=== PATIENT | female | born 1955 | race Hispanic/Latino ===

== ENCOUNTER 2016-07-12 05:33 | Emergency (ER) | payer OTHER ==
[2016-07-12 05:49] VITALS: BP 135/65; PULSE 61; RESP 16; TEMP 97.9; O2SAT 97
[2016-07-12] MEDS ORDERED: Clindamycin 300 MG in Sodium Chloride 0.9% 50 ML IVPB STA (06:13)
--- NOTE | 2016-07-12 06:32 | ED PDOC ---
Lower Extremity Pain/Injury Time Seen by Provider: 07/12/16 05:51 Chief Complaint (Nursing): Bite Chief Complaint (Provider): Bite History Per: Patient History/Exam Limitations: no limitations Onset/Duration Of Symptoms: Days (Since ) Current Symptoms Are (Timing): Still Present Severity: Mild Additional Complaint(s): 61 y/o female patient presenting to the ER with swelling and redness to her right lower extremity. Patient states that on she was playing with her cat and the cat nipped her on her leg and made a small bite. The patient began having some swelling and redness so she went to urgent care where she was prescribed Doxycycline because she can not tolerate augmentin when tried in the past. PT states that after taking 3 does of the medications, the swelling and redness has worsened and now it causes her pain when trying to walk, she states she has no fever or chills. Past Medical History Reviewed: Historical Data, Nursing Documentation, Vital Signs, Unable To Obtain Vital Signs: Last Vital Signs Temp 97.9 F 07/12/16 05:44 Pulse 61 07/12/16 05:44 Resp 16 07/12/16 05:44 BP 135/65 07/12/16 05:44 Pulse Ox 97 07/12/16 05:44 - Medical History PMH: No Chronic Diseases - Surgical History Surgical History: No Surg Hx - Family History Family History: States: Unknown Family Hx - Allergies Allergies/Adverse Reactions: Allergies Allergy/AdvReac Type Severity Reaction Status Date / Time amoxicillin [From Augmentin] Allergy RASH Verified 07/12/16 06:02 clavulanic acid Allergy RASH Verified 07/12/16 06:02 [From Augmentin] quinine Allergy RASH Verified 07/12/16 06:02 Sulfa (Sulfonamide Allergy RASH Verified 07/12/16 06:02 Antibiotics) Review of Systems ROS Statement: Except As Marked, All Systems Reviewed And Found Negative Constitutional: Negative for: Fever, Chills Cardiovascular: Negative for: Chest Pain, Palpitations Respiratory: Negative for: Shortness of Breath, Wheezing Gastrointestinal: Negative for: Nausea, Vomiting, Diarrhea Musculoskeletal: Positive for: Leg Pain Neurological: Negative for: Confusion, Dizziness Physical Exam - Reviewed Nursing Documentation Reviewed: Yes Vital Signs Reviewed: Yes - Physical Exam Appears: Positive for: Non-toxic, No Acute Distress Head Exam: Positive for: ATRAUMATIC, NORMAL INSPECTION, NORMOCEPHALIC Skin: Positive for: Normal Color, Warm Neck: Positive for: Normal, Painless ROM, Supple Cardiovascular/Chest: Positive for: Regular Rate, Rhythm. Negative for: Murmur Respiratory: Positive for: Normal Breath Sounds. Negative for: Respiratory Distress Extremity: Positive for: Swelling ((+)swelling, redness, [id number] surrounding erythema ) Neurologic/Psych: Positive for: Alert, Oriented. Negative for: Motor/Sensory Deficits - Laboratory Results Result Diagrams: 07/12/16 06:35 - ECG O2 Sat by Pulse Oximetry: 97 (RA) Pulse Ox Interpretation: Normal Medical Decision Making Medical Decision Making: Time: 604 Initial impression: Cat Bite with Cellulitis Initial plan: --VENOUS BLOOD GAS --CMP --CBC --ESR --CLINDAMYCIN 300MG --KETOROLAC 15MG --BLOOD CULTURE --URINE CULTURE --TIBIA FIBULA RIGHT --URINALYSIS 7AM: will sign out to Dr. Tamez pending rest of workup. Scribe Attestation: Documented by Altagracia Trotter, acting as a scribe for Yaw Chu MD MD Scribe Attestation: All medical record entries made by the Scribe were at my direction and personally dictated by me. I have reviewed the chart and agree that the record accurately reflects my personal performance of the history, physical exam, medical decision making, and the department course for this patient. I have also personally directed, reviewed, and agree with the discharge instructions and disposition. Disposition - Clinical Impression Clinical Impression: Cat bite - Patient ED Disposition Is Patient to be Admitted: No - Disposition Disposition: Transfer of Care Disposition Time: 07:00 Condition: STABLE Patient Signed Over To: Jhonny Tamez Jr. Handoff Comments: pending workup
[2016-07-12] MEDS ORDERED: Clindamycin 300 MG in Sodium Chloride 0.9% 100 ML IVPB STA (06:37)
[2016-07-12 06:39] LABS: VENOUS BLOOD GAS BASE EXCESS -4.7 mmol/L (0.0-2.0); VENOUS BLOOD GAS PCO2 80 mmHg (40-60); VENOUS BLOOD PH 7.12 (7.32-7.43)
[2016-07-12 06:42] LABS: BASO # 0.1 K/uL (0.0-0.2); BASO % 0.8 % (0.0-2.0); EOS # 0.4 K/uL (0.0-0.7); EOS % 5.9 % (0.0-4.0); HEMATOCRIT 34.9 % (34.0-47.0); LYMPH # 2.4 K/uL (1.0-4.3); LYMPH % 36.1 % (20.0-40.0); MEAN CELL VOLUME 99.6 fl (81.0-99.0); MEAN CORPUSCULAR HEMOGLOBIN 32.2 pg (27.0-31.0); MEAN CORPUSCULAR HGB CONC 32.3 g/dL (33.0-37.0); MEAN PLATELET VOLUME 7.1 fl (7.2-11.7); MONO # 0.6 K/uL (0.0-0.8); MONO % 9.6 % (0.0-10.0); NEUT # 3.2 K/uL (1.8-7.0); NEUT % 47.6 % (50.0-75.0); RED CELL DISTRIBUTION WIDTH 13.7 % (11.5-14.5); WHITE BLOOD COUNT 6.7 K/uL (4.8-10.8)
[2016-07-12 06:54] LABS: ALB/GLOB RATIO 1.4 (1.0-2.1); ALKALINE PHOSPHATASE 65 U/L (38-126); ALT/SGPT 60 U/L (9-52); AST/SGOT 36 U/L (14-36); BILIRUBIN,TOTAL 0.5 mg/dl (0.2-1.3); BLOOD UREA NITROGEN 15 mg/dl (7-17); CALCIUM 9.7 mg/dL (8.4-10.2); CARBON DIOXIDE 28 mmol/L (22-30); CHLORIDE 106 mmol/L (98-107); GFR AFRICAN-AMERICAN > 60; GLUCOSE,RANDOM 88 mg/dL (65-105); POTASSIUM 4.3 MMOL/L (3.6-5.0); SODIUM 141 mmol/l (132-148)
--- NOTE | 2016-07-12 07:30 | ED PDOC ---
- Laboratory Results Result Diagrams: 07/12/16 06:35 07/12/16 06:35 - ECG O2 Sat by Pulse Oximetry: 97 (RA) Pulse Ox Interpretation: Normal Medical Decision Making Medical Decision Making: Receiving Sign Out: Patient signed out to me by Dr. Chu pending Right Tibia Fibula XR results and final disposition. Scribe Attestation: Documented by Kelsie Spencer acting as a scribe for Jhonny Tamez DO. Provider Attestation: All medical record entries made by the Scribe were at my direction and personally dictated by me. I have reviewed the chart and agree that the record accurately reflects my personal performance of the history, physical exam, medical decision making, and the department course for this patient. I have also personally directed, reviewed, and agree with the discharge instructions and disposition. Disposition - Clinical Impression Clinical Impression: Cat bite - POA Present On Arrival: None - Disposition Disposition: Routine/Home Disposition Time: 07:54 Condition: STABLE Additional Instructions: Ms. Madsen, thank you for letting us take care of you today. Return to the ER if your symptoms worsen, if redness spreads further, or if any problems. Continue taking doxycycline. We are also adding the medication clindamycin. Please take this as prescribed. Follow up with your primary care physician in 2-3 days for a re-evaluation. Prescriptions: Clindamycin [Cleocin] 1 tab PO QID #40 cap Instructions: Animal Bite (ED) Forms: [employer] (Barbadian), [facility] ED School/Work Excuse Print Language: AZERI
[2016-07-12 09:12] LABS: RBC URINE 1 /hpf (0-3); URINE BILIRUBIN NEGATIVE (NEGATIVE); URINE BLOOD NEGATIVE (NEGATIVE); URINE COLOR YELLOW (YELLOW); URINE GLUCOSE (UA) NEG (Normal); URINE KETONE TRACE mg/dL (NEGATIVE); URINE LEUKOCYTE ESTERASE TRACE Leu/uL (Negative); URINE PROTEIN NEGATIVE (NEGATIVE); URINE UROBILINOGEN 0.2-1.0 mg/dL (0.2-1.0); WBC URINE < 1 /hpf (0-5)
--- NOTE | 2016-07-12 09:25 | RAD ---
Right tibia fibula History: Cat bite 3 days ago, now with swelling. Findings: No fracture. No evidence of soft tissue air. Mild degenerative changes involving the joints. Impression: No evidence of underlying fracture or soft tissue air. Repeat evaluation should be obtained if symptoms persist.
== END 2016-07-12 08:50 | disposition home or self-care (01) ==
LOC: H.ER 05:33
DX: T14.8 Other injury of unspecified body region (principal); W55.01XA Bitten by cat, initial encounter; Y92.89 Other specified places as the place of occurrence of the external cause; L03.115 Cellulitis of right lower limb

== ENCOUNTER 2017-05-29 17:16 | Emergency (ER) | payer OTHER ==
[2017-05-29 17:54] VITALS: BP 121/78; PULSE 67; RESP 18; TEMP 97.9; O2SAT 99
--- NOTE | 2017-05-29 18:42 | ED PDOC ---
Upper Extremity Pain/Injury Time Seen by Provider: 05/29/17 17:57 Chief Complaint (Nursing): Upper Extremity Problem/Injury Chief Complaint (Provider): Upper Extremity Problem/Injury History Per: Patient History/Exam Limitations: no limitations Onset/Duration Of Symptoms: Sudden Onset (x1 hour [employer]) Current Symptoms Are (Timing): Still Present Additional Complaint(s): 62 year old female with medical history of hyperlipidemia and RA, presents to the emergency department for an evaluation of a right elbow injury status post tripping on an uneven curve of sidewalk approximately 1 hour prior to arrival. Patient reports taking Tylenol and Motrin upon onset. She denies any numbness, tingling or other bodily injuries. PMD: Samuel Davenport MD Past Medical History Reviewed: Historical Data, Nursing Documentation, Vital Signs Vital Signs: Last Vital Signs Temp 97.9 F 05/29/17 17:51 Pulse 67 05/29/17 17:51 Resp 18 05/29/17 17:51 BP 121/78 05/29/17 17:51 Pulse Ox 99 05/29/17 17:51 - Medical History PMH: Hyperlipidemia, Rheumatoid Arthritis - Surgical History Surgical History: - Family History Family History: States: Unknown Family Hx - Social History Current smoker - smoking cessation education provided: No Alcohol: Social Drugs: Denies - Home Medications Home Medications: Ambulatory Orders Medication Instructions Recorded Clindamycin [Cleocin] 1 tab PO QID #40 cap 07/12/16 Ondansetron ODT [Zofran ODT] 4 mg PO TID #20 odt 05/29/17 oxyCODONE/Acetaminophen [Percocet 1 ea PO Q8 PRN #14 tab 05/29/17 5/325 mg Tab] - Allergies Allergies/Adverse Reactions: Allergies Allergy/AdvReac Type Severity Reaction Status Date / Time amoxicillin [From Augmentin] Allergy RASH Verified 05/29/17 17:51 clavulanic acid Allergy RASH Verified 05/29/17 17:51 [From Augmentin] quinine Allergy RASH Verified 05/29/17 17:51 Sulfa (Sulfonamide Allergy RASH Verified 05/29/17 17:51 Antibiotics) Review of Systems ROS Statement: Except As Marked, All Systems Reviewed And Found Negative Musculoskeletal: Positive for: Arm Pain (right elbow). Negative for: Other ( other bodily injuries) Neurological: Negative for: Numbness (or tingling) Physical Exam - Reviewed Nursing Documentation Reviewed: Yes Vital Signs Reviewed: Yes - Physical Exam Appears: Positive for: Non-toxic, Uncomfortable Skin: Positive for: Normal Color. Negative for: Rash Pulses-Radial (L): 2+ Pulses-Radial (R): 2+ Extremity: Positive for: Tenderness (right elbow moderately), Capillary Refill ( <2 seconds to right arm), Swelling (right elbow moderately). Negative for: Deformity (right elbow), Other (edema or tenderness to right shoulder, wrist and hand) Neurologic/Psych: Positive for: Alert (x3), Oriented. Negative for: Motor/ Sensory Deficits - ECG O2 Sat by Pulse Oximetry: 99 (RA) Pulse Ox Interpretation: Normal Medical Decision Making Medical Decision Making: Initial Impression: Right elbow injury Initial Plan: * Xray elbow (right) * Tylenol 650mg PO ordered at 1808 (pt. refused). Time: 1809 --Xray elbow (right): interpreted by provider. Displaced olecranon fracture noted without dislocation. --Provider offered pain medication to patient, however, she refused drug treatment. Time: 1856 --Discussed case with Dr. Nunez who recommended application of a post elbow splint at 10 degrees of flexion. He also requested CT elbow to be performed and asked not to be contacted with results, as he will follow up with patient in office on 06/01/17. --Plan was relayed to patient. She is now requesting pain medication for relief. --Zofran 4mg, Percocet 5/325mg and CT of the upper extremities without contrast ordered. --Pt. then changed her mind and preferred not to take any medications but states she will take prescription. Time: 2027 --CT UE FINDINGS: BONES/JOINTS: Acute fracture of the proximal ulna, involving the olecranon process. The fracture is significantly comminuted and displaced. There is 1 cm or greater superior and posterior displacement of a large 2 cm olecranon process fracture fragment. The fracture involves the articular surface at more than one location. Elbow joint effusion is seen. No additional acute fractures seen. Visualized portions of the radius and distal humerus appear intact. SOFT TISSUES: Findings suspicious for a 5 x 2 x 4 cm hematoma in the posterior elbow soft tissues. There is also marked posterior soft tissue swelling and. Triceps tendon is seen, and appears grossly intact by CT, however, note that the extremity soft tissues, such as the tendons and ligaments, are suboptimally evaluated by CT compared with MRI. IMPRESSION: - Comminuted and displaced intra-articular fracture of the olecranon process of the ulna. Please see above for a full description. - Findings suspicious for large 5 x 4 cm hematoma in the posterior elbow soft tissues. - Elbow joint effusion. Pt. informed of plan and is to f/u with Dr. Anson Philippe on Thursday. Scribe Attestation: Documented by María Morgan, acting as a scribe for Angel Krueger PA-C. Provider Scribe Attestation: All medical record entries made by the Scribe were at my direction and personally dictated by me. I have reviewed the chart and agree that the record accurately reflects my personal performance of the history, physical exam, medical decision making, and the department course for this patient. I have also personally directed, reviewed, and agree with the discharge instructions and disposition. Disposition - Clinical Impression Clinical Impression: Elbow fracture - Patient ED Disposition Is Patient to be Admitted: No - Disposition Referrals: Pineda Villagomez MD [Staff Provider] - [facility] [Outside] Disposition: Routine/Home Disposition Time: 21:15 Condition: IMPROVED Additional Instructions: Follow up with Dr. Anson Philippe on Thursday for further evaluation. Return to ED immediately if symptoms worsen. Prescriptions: Ondansetron ODT [Zofran ODT] 4 mg PO TID #20 odt oxyCODONE/Acetaminophen [Percocet 5/325 mg Tab] 1 ea PO Q8 PRN #14 tab PRN Reason: Pain Instructions: Elbow Fracture (DC) Forms: [email or web address] (Armenian) Print Language: MALAY
[2017-05-29] MEDS: Oxycodone/Acetaminophen 5/325 mg Tab PO STA ×2 (19:03→19:06)
--- NOTE | 2017-05-29 20:29 | CT ---
EXAM: CT Right Upper Extremity Without Intravenous Contrast, Elbow EXAM DATE/TIME: 05/29/2017 7:01 PM CLINICAL HISTORY: 62 years old, female; Injury or trauma; Fall; Initial encounter; Fracture, traumatic injury; Closed fracture; Elbow; Right; Injury details: Tripped and fell on uneven sidewalk; Additional info: Attention r elbow TECHNIQUE: Axial computed tomography images of the right elbow without intravenous contrast. All CT scans at this facility use one or more dose reduction techniques, viz.: automated exposure control; ma/kV adjustment per patient size (including targeted exams where dose is matched to indication; i.e. head); or iterative reconstruction technique. Coronal and sagittal reformatted images were created and reviewed. COMPARISON: Recent right elbow radiographs 2017-05-29 18:09 FINDINGS: BONES/JOINTS: Acute fracture of the proximal ulna, involving the olecranon process. The fracture is significantly comminuted and displaced. There is 1 cm or greater superior and posterior displacement of a large 2 cm olecranon process fracture fragment. The fracture involves the articular surface at more than one location. Elbow joint effusion is seen. No additional acute fractures seen. Visualized portions of the radius and distal humerus appear intact. SOFT TISSUES: Findings suspicious for a 5 x 2 x 4 cm hematoma in the posterior elbow soft tissues. There is also marked posterior soft tissue swelling and. Triceps tendon is seen, and appears grossly intact by CT, however, note that the extremity soft tissues, such as the tendons and ligaments, are suboptimally evaluated by CT compared with MRI. IMPRESSION: - Comminuted and displaced intra-articular fracture of the olecranon process of the ulna. Please see above for a full description. - Findings suspicious for large 5 x 4 cm hematoma in the posterior elbow soft tissues. - Elbow joint effusion. - See above for remaining findings.
--- NOTE | 2017-05-30 08:23 | RAD ---
PROCEDURE: Radiographs of the right elbow. HISTORY: trauma COMPARISON: No prior. FINDINGS: BONES: Avulsion fracture of the olecranon. JOINTS: Unremarkable. SOFT TISSUES: Olecranon bursal distention/soft tissue swelling. JOINT EFFUSION: None. OTHER FINDINGS: None. IMPRESSION: Avulsion fracture of the olecranon.
== END 2017-05-29 21:25 | disposition home or self-care (01) ==
LOC: H.ER 17:16
DX: S52.021A Displaced fracture of olecranon process without intraarticular extension of right ulna, initial encounter for closed fracture (principal); W18.09XA Striking against other object with subsequent fall, initial encounter; Y92.480 Sidewalk as the place of occurrence of the external cause

== ENCOUNTER 2017-06-04 21:38 | Emergency (ER) | payer OTHER ==
[2017-06-04 21:49] VITALS: BP 161/82; PULSE 85; RESP 18; TEMP 97.5; O2SAT 99
--- NOTE | 2017-06-04 23:00 | ED PDOC ---
HPI: Abdomen Time Seen by Provider: 06/04/17 21:48 Chief Complaint (Nursing): Abdominal Pain History Per: Patient History/Exam Limitations: no limitations Onset/Duration Of Symptoms: Days Outside of [place] travel?: No Location Of Pain/Discomfort: Diffuse Quality Of Discomfort: "Pain", Gas Associated Symptoms: Constipation. denies: Nausea, Vomiting Additional Complaint(s): Hx of arthritis, HLD and recent elbow fracture on percocet presenting with abdominal pain and constipation, states she has not been able to pass a BM for 6 days and feels "gassy" and uncomfortable, also states for the past 2 hours she cannot urinate. Denies fevers, chills, nausea, vomiting. States in 's. Was not taking stool softeners with opiates. Past Medical History Reviewed: Historical Data, Nursing Documentation, Vital Signs Vital Signs: Last Vital Signs Temp 97.5 F L 06/04/17 21:46 Pulse 85 06/04/17 21:46 Resp 18 06/04/17 21:46 BP 161/82 H 06/04/17 21:46 Pulse Ox 99 06/04/17 23:03 - Medical History PMH: Hyperlipidemia, Rheumatoid Arthritis - Surgical History Surgical History: - Family History Family History: States: Unknown Family Hx - Home Medications Home Medications: Ambulatory Orders Medication Instructions Recorded Clindamycin [Cleocin] 1 tab PO QID #40 cap 07/12/16 Ondansetron ODT [Zofran ODT] 4 mg PO TID #20 odt 05/29/17 oxyCODONE/Acetaminophen [Percocet 1 ea PO Q8 PRN #14 tab 05/29/17 5/325 mg Tab] - Allergies Allergies/Adverse Reactions: Allergies Allergy/AdvReac Type Severity Reaction Status Date / Time amoxicillin [From Augmentin] Allergy RASH Verified 05/29/17 17:51 clavulanic acid Allergy RASH Verified 05/29/17 17:51 [From Augmentin] quinine Allergy RASH Verified 05/29/17 17:51 Sulfa (Sulfonamide Allergy RASH Verified 05/29/17 17:51 Antibiotics) Review of Systems ROS Statement: Except As Marked, All Systems Reviewed And Found Negative Gastrointestinal: Positive for: Abdominal Pain, Constipation Physical Exam - Reviewed Nursing Documentation Reviewed: Yes Vital Signs Reviewed: Yes - Physical Exam Appears: Positive for: Well, Non-toxic, Uncomfortable Head Exam: Positive for: ATRAUMATIC, NORMAL INSPECTION, NORMOCEPHALIC Skin: Positive for: Normal Color, Warm, DRY Eye Exam: Positive for: EOMI, Normal appearance, PERRL ENT: Positive for: Normal ENT Inspection Neck: Positive for: Normal, Painless ROM Cardiovascular/Chest: Positive for: Regular Rate, Rhythm Respiratory: Positive for: CNT, Normal Breath Sounds Gastrointestinal/Abdominal: Positive for: Normal Exam, Soft, Tenderness ( suprapubic tenderness) Back: Positive for: Normal Inspection Rectal: Positive for: Other (Hard stool in rectal vault, external non-thrombosed /nonbleeding hemorrhoid) Extremity: Positive for: Normal ROM Neurologic/Psych: Positive for: Alert, Oriented - ECG O2 Sat by Pulse Oximetry: 99 Pulse Ox Interpretation: Normal Medical Decision Making Medical Decision MakinPM A/P: Hx of recent elbow sugery, on opiates presenting with abdominal pain and constipation -manual disempaction of patient provided some relief -patient likely has constipation secondary to not using stool softeners with opiates -will provide lactulose PO, fleet enema MO -will re-eval after -not concerned for SBO 0000 Patient had several large BM's and was able to urinate, feeling much better, thankful. Will apply viscous lido to rectum for pain relief, advised patient to take stool softeners with opiates in the future. Disposition - Clinical Impression Clinical Impression: Constipation - Patient ED Disposition Is Patient to be Admitted: No - Disposition Referrals: [facility] [Outside] Disposition: Routine/Home Disposition Time: 00:11 Condition: IMPROVED Instructions: Constipation in Adults Forms: [facility] [employer] (Mongolian)
[2017-06-05] MEDS ORDERED: Lidocaine 2% Jelly (Uro-Jet) TOP ONE (00:11)
[2017-06-05] MEDS ORDERED: Lidocaine 2% Jelly (Uro-Jet) ONE (00:19)
== END 2017-06-05 00:36 | disposition home or self-care (01) ==
LOC: H.ER 21:38
DX: K59.00 Constipation, unspecified (principal); E78.5 Hyperlipidemia, unspecified; M06.9 Rheumatoid arthritis, unspecified; Z88.0 Allergy status to penicillin